=== PATIENT | female | born 1980 | race Two or more races ===

== ENCOUNTER 2017-01-17 08:46 | Day surgery (SDC) | payer BC, OTHER ==
[~2017-01-17 08:46] MED LIST: Lactated Ringers 1,000 ML IV SCH; Sodium Chloride 0.9% 10 ML Syringe FLUSH PRN; Sodium Chloride 0.9% 2.5 ML Syringe FLUSH PRN
[2017-01-17] MEDS ORDERED: Propofol 200 MG/20 ML SDV ONE (09:17)
[2017-01-17] MEDS ORDERED: fentaNYL 100 MCG/2 ML SDV ONE (09:17)
[2017-01-17] MEDS ORDERED: Lidocaine 2% 5 ML SDV ONE (09:17)
[2017-01-17] MEDS ORDERED: Midazolam 1 MG/ML 2 ML SDV ONE (09:17)
--- NOTE | 2017-01-17 10:05 | PCM.PREANE ---
Preanesthetic Assessment - Anesthesia/Transfusion/Family Hx Anesthesia History: Prior Anesthesia Without Reaction Transfusion History: No Prior Transfusion(s) - Review of Systems General: No Symptoms Pulmonary: No Symptoms Cardiovascular: No Symptoms Gastrointestinal: No symptoms Neurological: No Symptoms Other: Reports: None - Physical Assessment NPO Status Date: 01/16/17 O2 Sat by Pulse Oximetry: 100 Respiratory Rate: 16 Vital Signs: Last Vital Signs Temp 36.9 C 01/17/17 09:42 Pulse 88 01/17/17 09:42 Resp 16 01/17/17 09:42 BP 134/74 01/17/17 09:42 Pulse Ox 100 01/17/17 09:42 Height: 1.65 m Weight: 56.699 kg ASA Class: 2 Mental Status: Alert & Oriented x3 Airway Class: Mallampati = 1 Dentition: Reports: Normal Dentition ROM/Head Extension: Full Lungs: Clear to auscultation, Normal respiratory effort Cardiovascular: Regular Rate, Regular Rhythm - Lab Values: Laboratory Last Values Urine HCG, Qual NEGATIVE (NEGATIVE) 01/17/17 09:43 - Allergies Allergies/Adverse Reactions: Allergies Allergy/AdvReac Type Severity Reaction Status Date / Time No Known Allergies Allergy Verified 01/15/17 10:03 - Anesthesia Plan Pre-Op Medication Ordered: None - Acknowledgements Anesthesia Type Planned: MAC Pt an Appropriate Candidate for the Planned Anesthesia: Yes Alternatives and Risks of Anesthesia Discussed w Pt/Guardian: Yes Pt/Guardian Understands and Agrees with Anesthesia Plan: Yes PreAnesthesia Questionnaire HEENT History: Other HEENT History: wears glasses Cardiovascular History: Reports: None Respiratory History: Reports: None Gastrointestinal History: Reports: Chronic diarrhea Other Gastrointestinal History: abdominal pain Genitourinary History: Reports: None ENVIRONMENTAL ENGINEERING AIDE History: Reports: None Musculoskeletal History: Reports: None Neurological History: Reports: Migraines Psychiatric History: Reports: Depression Other Psychiatric History: took medication in the past Endocrine/Metabolic History: Reports: None Hematologic History: Reports: None Immunologic History: Reports: None Oncologic (Cancer) History: Reports: None Dermatologic History: Reports: None - Past Surgical History Head Surgeries/Procedures: Reports: None HEENT Surgical History: Reports: None Cardiovascular Surgical History: Reports: None Respiratory Surgical History: Reports: None GI Surgical History: Reports: Appendectomy Female Surgical History: Reports: None Endocrine Surgical History: Reports: None Neurological Surgical History: Reports: None Musculoskeletal Surgical History: Reports: None Oncologic Surgical History: Reports: None Dermatological Surgical History: Reports: None - SUBSTANCE USE Smoking Status *Q: Never Smoker Days Per Week of Alcohol Use: 0 Recreational Drug Use History: No - HOME MEDS Home Medications: Home Meds Acetaminophen [Tylenol Extra Strength] 1 tab PO ASDIRECTED PRN 01/18/16 [History ] Eluxadoline [Viberzi] 100 mg PO DAILY 01/15/17 [History] - CURRENT (IN HOUSE) MEDS Current Meds: Current Medications Lactated Ringer's (Ringers, Lactated) 1,000 mls @ 125 mls/hr IV ASDIRECTED LEIGH Last Admin: 01/17/17 09:43 Dose: 125 mls/hr Sodium Chloride (Saline Flush) 10 ml FLUSH ASDIRECTED PRN PRN Reason: Keep Vein Open Sodium Chloride (Saline Flush) 2.5 ml FLUSH ASDIRECTED PRN PRN Reason: Keep Vein Open Discontinued Medications Fentanyl (Sublimaze) Confirm Administered Dose 100 mcg .ROUTE .STK-MED ONE Stop: 01/17/17 09:18 Lidocaine (Xylocaine-Mpf 2%) Confirm Administered Dose 5 ml .ROUTE .STK-MED ONE Stop: 01/17/17 09:18 Midazolam HCl (Versed 1 Mg/Ml) Confirm Administered Dose 2 mg .ROUTE .STK-MED ONE Stop: 01/17/17 09:18 Propofol (Diprivan 20 Ml) Confirm Administered Dose 400 mg .ROUTE .STK-MED ONE Stop: 01/17/17 09:18
--- NOTE | 2017-01-17 10:51 | PCM.OPNOTE ---
- General Post-Op/Procedure Note Date of Surgery/Procedure: 01/17/17 Operative Procedure(s): EGD with biopsies Findings: Normal appearing first and second portion of the intestines. Biopsies taken in 2nd and 1st portion of the intestines. Biopsies for H pylori and r/o gastritis taken in stomach. Pre Op Diagnosis: Celiac disease Post-Op Diagnosis: same Anesthesia Technique: MAC Primary Surgeon: Amanda Conway Condition: Good
--- NOTE | 2017-01-17 11:09 | PCM.POSTAN ---
POST ANESTHESIA ASSESSMENT - MENTAL STATUS Mental Status: alert, oriented - RESPIRATORY Respiratory Status: respiratory rate WNL, airway patent - CARDIOVASCULAR CV Status: pulse rate WNL - GASTROINTESTINAL GI Status: no symptoms - POST OP HYDRATION Hydration Status: adequate & stable
--- NOTE | 2017-01-17 11:26 | PCM48HPAN ---
Post Anesthesia Note - EVALUATION WITHIN 48HRS OF ANESTHETIC Vital Signs in Normal Range: Yes Patient Participated in Evaluation: Yes Respiratory Function Stable: Yes Airway Patent: Yes Cardiovascular Function Stable: Yes Hydration Status Stable: Yes Pain Control Satisfactory: Yes Nausea and Vomiting Control Satisfactory: Yes Mental Status Recovered: Yes - COMMENTS/OBSERVATIONS Free Text/Narrative:: shivering, but not cold
[2017-01-17 11:30] VITALS: BP 102/75
--- NOTE | 2017-01-17 18:32 | OR ---
SURGEON: RUTH WASHINGTON MD DATE OF PROCEDURE: 01/17/2017 PREOPERATIVE DIAGNOSIS: Celiac disease. POSTOPERATIVE DIAGNOSIS: Celiac disease. PROCEDURE PERFORMED: Diagnostic esophagogastroduodenoscopy with biopsies. ANESTHESIA: MAC. EXTENT OF EXAM: To the second portion of duodenum. INSTRUMENT USED: Olympus endoscope. FINDINGS: Normal appearing intestinal mucosa. Biopsies taken in the second and first portion of the duodenum as well as the stomach. INDICATIONS: The patient is a 36-year-old female, who has tested positive serologically for celiac disease. She presents to me for tissue diagnosis of celiac disease. The patient and I talked about the procedure as well as expected perioperative course. We discussed the risks, including bleeding, infection, perforation, or damage to surrounding structures. The patient verbalized understanding and wishes to proceed. DESCRIPTION OF PROCEDURE: The patient was brought to the endoscopy suite and placed in a beach chair position. A time-out was completed verifying the patient's name, age, date of , allergies, and procedure to be performed. A bite-block was placed in the patient's mouth and monitored anesthesia care was induced. Oxygen was provided via nasal cannula throughout the procedure. Once adequate sedation had been achieved, I placed the endoscope over the patient's tongue down her esophagus, through the stomach, and into the second portion of the duodenum. The mucosa of the intestines all appeared normal. Two biopsies were taken in the second portion of the duodenum both anteriorly and laterally taking care not to involve the ampulla of the common bile duct. The scope was then brought into the duodenal bulb and 4 biopsies were taken within 4 quadrants of the first portion of duodenum. These were sent for testing for possible celiac disease. The scope was then brought into the stomach and a picture was taken of the pylorus which appeared normal. The scope was retroflexed and a picture was taken of the esophageal hiatus which appeared normal. The gastric mucosa appeared normal. Biopsies were taken of the body, antrum, and fundus, and sent for H. pylori testing and to rule out any gastritis. The scope was brought into the esophagus and a photograph was taken at the GE junction which appeared normal. The remainder of the esophagus was examined and found to be normal. The scope was removed from the patient and the procedure was terminated. The patient tolerated the procedure well and was taken to PACU in stable condition. ENDOSCOPIC DIAGNOSES: 1. Normal appearing intestinal mucosa. 2. Normal appearing esophagus and stomach. RECOMMENDATIONS: Follow up in clinic in 2 weeks. OYU JACK /[id number]
== END 2017-01-17 12:10 | disposition home or self-care (01) ==
LOC: MW.SDS 08:46
PROVIDERS: ATTEND Surgery
PROC: 0DB68ZX Excision of Stomach, Via Natural or Artificial Opening Endoscopic, Diagnostic (ICD-10-PCS; principal; 2017-01-17)
DX: K90.0 Celiac disease (principal); F41.8 Other specified anxiety disorders; Z79.899 Other long term (current) drug therapy; Z90.49 Acquired absence of other specified parts of digestive tract
CPT/HCPCS: 43239; 81025; 88305; 88312; J2250; J3010; J7120; 00740; J2704